=== PATIENT | female | born 1970 | race Asian ===

== ENCOUNTER → 2021-07-26 | Outpatient (CLI) | payer OTHER ==
--- NOTE | 2021-08-13 10:42 | RAD ---
BILATERAL DIGITAL SCREENING 2-D AND 3-D MAMMOGRAM INDICATION: Routine screening. COMPARISON: 12/04/2017, 01/05/2016, 12/04/2015 Interpretation was made using CAD. FINDINGS: Breast Density: The breasts are heterogeneously dense, which may obscure small masses. RIGHT BREAST: Indeterminate right upper outer regional calcifications. No suspicious masses or michael ectural distortion. LEFT BREAST: Indeterminate left upper outer grouped calcifications. No suspicious masses or qa automation architect ural distortion. IMPRESSION: 1. Bilateral indeterminate calcifications. ASSESSMENT: BI-RADS 0: Incomplete -- Need Additional Imaging Evaluation and/or Prior Mammograms for C omparison. RECOMMENDATION: Bilateral diagnostic mammogram with spot magnification views. The facility will notify the patient of the results via mail. Patient information will be entered int o the mammography reminder system with a target recall date for the next mammogram. A reminder letter will be generated by the facility. Electronically signed by: Wesly Arredondo MD (08/13/2021 10:39 AM) [id number]
== END ==
LOC: MAMMO 13:14
PROVIDERS: ATTEND Family Medicine
DX: Z12.31 Encounter for screening mammogram for malignant neoplasm of breast (principal)
CPT/HCPCS: 77063; 77067

== ENCOUNTER → 2021-08-29 | Outpatient (CLI) | payer OTHER ==
--- NOTE | 2021-08-29 16:05 | RAD ---
CLINICAL INDICATION: GUANACO PRYOR, who is 50 years of age, presents for further evaluation of a find ing noted on her most recent screening mammographic examination. On that examination indeterminate mi crocalcifications were reported within both breasts COMPARISON: Prior mammographic imaging dating back to TECHNIQUE: Diagnostic views of the both breasts were obtained, utilizing digital technique. BREAST COMPOSITION: There are scattered fibroglandular densities. MAMMOGRAM FINDINGS: Predominantly punctate calcifications are seen in the upper outer right breast mid-posterior depth. Small group of coarse calcifications are seen in the slightly superior, lateral left breast. The visualized axilla appears unremarkable. IMPRESSION: 1. Right breast microcalcifications with suspicious imaging features for which tissue biopsy is recom mended and can be performed with stereotactic imaging guidance. 2. Small group of coarse calcifications in the left breast for which follow-up ultrasound imaging in 6 months can be performed. RECOMMENDATION: Biopsy recommended. The results and recommendation were discussed with patient at the end of the exam ination. BIRADS 4: SUSPICIOUS Electronically signed by: Dominic Quick MD (08/29/2021 4:02 PM) [facility]
== END ==
LOC: MAMMO 14:39
PROVIDERS: ATTEND Family Medicine
DX: R92.1 Mammographic calcification found on diagnostic imaging of breast (principal)
CPT/HCPCS: 77066